=== PATIENT | female | born 1990 | race Caucasian/White ===

== ENCOUNTER → 2021-02-05 09:06 | Outpatient (CLI) | payer BC, SELFPAY ==
[2021-02-05 16:58] LABS: SARS-CoV-2 RNA PCR Negative
== END ==
PROVIDERS: PCP Family Medicine; Visit Provider Family Medicine
DX: R68.89 Other general symptoms and signs (principal); Z20.822 Contact with and (suspected) exposure to COVID-19
CPT/HCPCS: C9803; U0003; U0005

== ENCOUNTER 2021-07-25 19:28 | Emergency (ER) | payer BC, SELFPAY ==
--- NOTE | 2021-07-25 19:35 | ED.SKABFB ---
HPI - Skin/Abscess/Foreign Bdy General Chief complaint: Wound/Laceration Stated complaint: Dog Bite Time Seen by Provider: 07/25/21 19:35 Source: patient Mode of arrival: ambulatory Limitations: no limitations History of Present Illness HPI narrative: [place] House is a 31 yo female with PMH of depression who was bitten the left hand on the dorsum below the fifth finger and the palm towards the medial side; two small puncture suarez-had a tetanus shot in the last 5 years. The 2 dogs involved in the dog fight are theirs; they are up-to-date on their shots and has received current foot care. Related Data Home Medications Medication Instructions Recorded Confirmed escitalopram oxalate mg 07/25/21 Allergies Allergy/AdvReac Type Severity Reaction Status Date / Time No Known Allergies Allergy Verified 07/25/21 19:37 Review of Systems Review of Systems: CONSTITUTIONAL: Denies fever, chills, sweats. EYES: Denies visual changes, redness, discharge. ENT: Denies rhinorrhea, congestion, sore throat, otalgia. CARDIOVASCULAR: Denies chest pain, palpitations, edema. RESPIRATORY: Denies dyspnea, wheezing, cough GASTROINTESTINAL: Denies abdominal pain, nausea, vomiting, diarrhea. GENITOURINARY: Denies dysuria, hematuria, abnormal discharge SKIN: Denies rash or itching. 2 puncture suarez to the left hand from a dog bite NEUROLOGIC: Denies numbness, or focal weakness. PSYCHIATRIC: Denies anxiety or depression. PMFSH Past Medical History Medical History No acute medical problems Comments At time of signature, I agree with nursing past medical, surgical, social and family history. There is no relevant family history pertinent to the presenting complaint. Patient's blood pressure is high due to the circumstances around there are dogs getting into a fight and getting but she normally has of normal blood pressure but she will be going to her PCP for follow-up for this dog bite this week Exam Narrative: GENERAL: This is a well-nourished, well-developed patient, in mild distress. HEAD: normocephalic, atraumatic. EYES: Sclera clear/white. Vision is grossly intact. EARS: External ears normal. Hearing grossly intact. NOSE: External nose normal without nasal discharge, THROAT: Mucous membranes moist, NECK: Neck supple, CARDIOVASCULAR: Regular rate and rhythm without murmurs, gallops, or rubs. RESPIRATORY: Clear to auscultation. Breath sounds equal bilaterally. No wheezes, rales, or rhonchi. GASTROINTESTINAL: Abdomen soft, non-tender, SKIN: warm, intact with no suspicious lesions or rash, good texture and turgor. Bite to left hand to puncture suarez 0.5 cm dorsum of hand under fifth finger ,0.25 cm palmar side controlled bleeding NEURO: awake, alert, and oriented to person, place and time. There were no obvious focal neurologic abnormalities. Steady gait EXTREMITIES: Normal range of motion. BACK: Nontender without deformity Course Course Emergency Course: Patient comes with 2 puncture suarez in her left hand from dog bite Given tetanus immunization Hand soaked in Technicare and Steri-Strips applied to the 2 puncture suarez(.5,.25 cm) Started on Augmentin- discussed signs of infection and care of bite Follow-up with PCP Vital Signs Vital signs: Vital Signs Temperature 97.9 F 07/25/21 19:40 Pulse Rate 94 07/25/21 19:40 Respiratory Rate 16 07/25/21 19:40 Blood Pressure 137/102 H 07/25/21 19:40 Pulse Oximetry 99 07/25/21 19:40 Temperature 97.9 F 07/25/21 19:40 Pulse Rate 94 07/25/21 19:40 Respiratory Rate 16 07/25/21 19:40 Blood Pressure 137/102 H 07/25/21 19:40 Pulse Oximetry 99 07/25/21 19:40 MDM - Skin/Abscess/Foreign Bdy Differential Diagnosis Differential diagnosis: Likely cellulitis and other (Dog bite) Critical Care Time Critical Care Time Critical Care Time: No Discharge Plan Discharge Clinical Impression: Dog bite
[2021-07-25 19:40] VITALS: BP 137/102; PULSE 94; RESP 16; TEMP 36.6; O2SAT 99
[2021-07-25] MEDS: TETANUS,DIPHTHERIA,AC PERTUSSIS ADULT (0.5 ML) BOOSTRIX IM (19:46)
== END 2021-07-25 20:04 | disposition home or self-care (01) ==
PROVIDERS: Emergency Provider Nurse Practitioner; PCP Family Medicine
DX: S61.432A Puncture wound without foreign body of left hand, initial encounter (principal); W54.0XXA Bitten by dog, initial encounter; Z23 Encounter for immunization
CPT/HCPCS: 90471; 90715; 99203; G0463